=== PATIENT | female | born 1985 | race Caucasian/White ===

== ENCOUNTER → 2018-03-22 | Outpatient (CLI) | payer MEDICAID ==
[~2018-03-22] MED LIST: BCP; BENZ100C18 PO; CEFP500T4 PO; NAPR-243 PO; birth control pill
--- NOTE | 2018-03-22 20:41 | Diagnostic Imaging Report ---
PROCEDURE: US OB single fetus <14 wks. TECHNIQUE: Multiple real-time grayscale images were obtained over the gravid uterus in various projections. INDICATION: dating. FINDINGS: There is a henry intrauterine gestational sac which demonstrates normal morphology. pole is present with crown-rump length of 1.5 cm, indicating gestational age of 8 weeks. Minimal fluid is seen adjacent to the gestational sac which may be related to implantation bleed. Cardiac activity is present with a rate of 176 beats per minute. No maternal adnexal region abnormality is identified. IMPRESSION: Unremarkable early intrauterine gestation with estimated age of 8 weeks. Sonographic EDC is 11/01/2018. Dictated by: Dictated on workstation # [id number]
== END ==
LOC: RAD 15:39
PROVIDERS: ATTEND Family Medicine
DX: Z34.91 Encounter for supervision of normal pregnancy, unspecified, first trimester (principal); Z3A.08 8 weeks gestation of pregnancy
CPT/HCPCS: 76801

== ENCOUNTER → 2018-06-04 | Outpatient (CLI) | payer MEDICAID ==
--- NOTE | 2018-06-04 17:47 | Diagnostic Imaging Report ---
INDICATION: survey. TECHNIQUE: Multiple real-time grayscale images were obtained over the gravid uterus. COMPARISON: 03/12/2018 FINDINGS: A single live intrauterine fetus is seen measuring 19 weeks 0 days in size with normal interval growth compared to the previous study. The fetus is in breech presentation at this time. Amniotic fluid is qualitatively normal. Placenta is posterior and grade 1 with no evidence of previa. heart rate is 152 beats per minute. Cervical length was 4.2 cm. Maternal ovaries could not be visualized but there was no free fluid. survey showed normal-appearing kidneys and bladder and stomach. Normal-appearing intracranial ventricles were seen. Normal four-chamber heart view and three-vessel cord and cord insertion were seen. Normal views of the spine were noted. The gestational sac had a normal shape. Biometrical measurements are as follows: Biparietal 4.42 cm, age 19 weeks 3 days. Head circumference 16.61 cm, age 19 weeks 3 days. Abdominal circumference 12.71 cm, age 18 weeks 3 days. Femur length 2.80 cm, age 18 weeks 4 days. Sonographic estimate age: 19 weeks 0 days. Sonographic estimated date of delivery: 10/29/2018. Estimated Weight: 245 gm (+/- 36 gm). LMP percentile: 43%. heart rate: 152 beats per minute. number: 1 of 1. IMPRESSION: Single live intrauterine fetus measuring 19 weeks 0 days in size with normal growth compared to the prior study. survey showed no detectable abnormalities. Cervical length is normal at 4.2 cm. Dictated by: Dictated on workstation # [id number]
== END ==
LOC: RAD 15:53
PROVIDERS: ATTEND Family Medicine
DX: Z36.89 Encounter for other specified antenatal screening (principal); Z3A.19 19 weeks gestation of pregnancy
CPT/HCPCS: 76805

== ENCOUNTER → 2018-07-26 | Outpatient (CLI) | payer MEDICAID ==
--- NOTE | 2018-07-26 09:40 | NUR ---
to [facility] via ambulation for rhogam administration per dr lawler order.
== END ==
LOC: WSo 09:47
PROVIDERS: ATTEND Family Medicine
DX: Z31.82 Encounter for Rh incompatibility status (principal)
CPT/HCPCS: 96372

== ENCOUNTER → 2018-10-22 | Outpatient (CLI) | payer MEDICAID ==
[~2018-10-22] MED LIST changes: +PNV11TAB5 PO
== END ==
LOC: LAB 08:40
PROVIDERS: ATTEND Family Medicine
DX: R03.0 Elevated blood-pressure reading, without diagnosis of hypertension (principal)
CPT/HCPCS: 82570; 84156

== ENCOUNTER → 2018-10-23 | Outpatient (CLI) | payer MEDICAID ==
[~2018-10-23] MED LIST changes: +ACHD5005 PO; +Benzocaine/Menthol TP; +DIBU30OI TOP; +DOCU100C37 PO; +FERR325T18 PO; +IBUP-844 PO; +LABE200T7 PO
[2018-10-23 10:10] LABS: HEMOGLOBIN 10.3 G/DL (11.5-16.0); RED CELL DISTRIBUTION WIDTH 15.2 % (10.0-14.5); WHITE BLOOD COUNT 7.8 10^3/uL (4.3-11.0)
[2018-10-23 10:28] LABS: ALANINE AMINOTRANSFERASE 15 U/L (0-55); ALBUMIN 3.2 GM/DL (3.2-4.5); ALKALINE PHOSPHATASE 142 U/L (40-136); BILIRUBIN,TOTAL 0.7 MG/DL (0.1-1.0); BUN/CREATININE RATIO 11; CALCIUM 9.2 MG/DL (8.5-10.1); CHLORIDE 103 MMOL/L (98-107); CREATININE SERUM 0.64 MG/DL (0.60-1.30); GFR ESTIMATED > 60; GLUCOSE 81 MG/DL (70-105); SODIUM 132 MMOL/L (135-145); TOTAL PROTEIN 7.4 GM/DL (6.4-8.2); URIC ACID 4.6 MG/DL (2.6-7.2)
[2018-10-23 10:40] LABS: CARBON DIOXIDE 8 MMOL/L (21-32)
== END ==
LOC: LABNPT 10:00
PROVIDERS: ATTEND Obstetrics & Gynecology
DX: O13.9 Gestational [pregnancy-induced] hypertension without significant proteinuria, unspecified trimester (principal); Z3A.00 Weeks of gestation of pregnancy not specified
CPT/HCPCS: 80053; 82570; 84156; 84550; 85027

== ENCOUNTER 2018-10-25 06:00 | Inpatient (IN) | payer MEDICAID | END 2018-10-27 11:10 | disposition home or self-care (01) | LOC: LDRP 06:00 ==

== ENCOUNTER 2018-11-02 16:02 | Emergency (ER) | payer MEDICAID ==
[~2018-11-02] VITALS: Ht 177.8 cm; Wt 69.9 kg
--- NOTE | 2018-11-02 16:13 | ED GU-Female ---
General Stated Complaint: BLEEDING AFTER VAG DELIVERY Source: patient Exam Limitations: no limitations History of Present Illness Date Seen by Provider: Nov 02, 2018 Time Seen by Provider: 16:01 Initial Comments The patient presents to ER by private conveyance with her spouse and family and chief complaint she is 9 days from a with a history of mild preeclampsia with them most recent known to Dr. Rivero and Dr. KINNEY. She been having normal bleeding about the level of period until the last 2 days when she started passing some egg-sized clots and then today she passed a large clot and filled her pants and shoes in a puddle on the ground so she decided to come to the ER. She's not having any fevers chills cough shortness of breath chest pain or abdominal or pelvic pain. No other discharge. She has mild discomfort in her suprapubic region but no dysuria. No bleeding disorder. The patient is on labetalol for her hypertension and vitamins as well as iron. Allergies and Home Medications Allergies Coded Allergies: No Known Drug Allergies (Unverified , 10/25/18) Home Medications Dibucaine 30 Gm Oint, 0 GM TOP UD PRN for PAIN- SEE INSTRUCTIONS Prescribed by: CHANTELL KINNEY on 10/25/181820 Docusate Sodium 100 Mg Capsule, 100 MG PO BID PRN for CONSTIPATION-1ST LINE Prescribed by: CHANTELL KINNEY on 10/25/181820 Ferrous Sulfate 325 Mg Tablet, 325 MG PO DAILY Prescribed by: CHANTELL KINNEY on 10/25/181820 Hydrocodone Bit/Acetaminophen 1 Tab Tab, 1 TAB PO Q4H PRN for PAIN-MODERATE Prescribed by: CHANTELL KINNEY on 10/25/181820 Ibuprofen 600 Mg Tablet, 600 MG PO Q6HR Prescribed by: CHANTELL KINNEY on 10/25/181820 Labetalol HCl 200 Mg Tablet, 200 MG PO BID Prescribed by: CHANTELL KINNEY on 10/26/18 0809 Tuj431/FA/Omega3/Dha/Fish Oil 1 Each Tab.chew, 2 EACH PO DAILY, (Reported) [Benzocaine/Menthol] 56 ML AEROSOL, 56 ML TP UD PRN for PAIN- SEE INSTRUCTIONS EXTERNAL USE ONLY Prescribed by: CHANTELL KINNEY on 10/25/181820 [ control pill] , DAILY, (Reported) Patient Home Medication List Home Medication List Reviewed: Yes Review of Systems Review of Systems Constitutional: No chills, No diaphoresis EENTM: No ear discharge, No ear pain Respiratory: No short of breath Cardiovascular: No chest pain, No edema Gastrointestinal: No abdominal pain, No constipation, No diarrhea Past Wkzpnng-Wmqwyp-Fophnc Hx Patient Social History Alcohol Use: Denies Use Recreational Drug Use: No Smoking Status: Never a Smoker Recent Foreign Travel: No Contact w/Someone Who Travel: No Recent Hopitalizations: No Immunizations Up To Date PED Vaccines UTD: Yes Seasonal Allergies Seasonal Allergies: Yes Past Medical History Surgeries: Yes Respiratory: No Cardiac: No Neurological: No Reproductive Disorders: No Female Reproductive Disorders: Denies Sexually Transmitted Disease: No HIV/AIDS: No Genitourinary: No Gastrointestinal: No Musculoskeletal: No Endocrine: No HEENT: No Cancer: No Psychosocial: No Integumentary: No Blood Disorders: No Adverse Reaction/Blood Tranf: No Family Medical History Hypertension 19 MOTHER No Pertinent Family Hx Physical Exam Vital Signs Vital Signs - First Documented 11/02/18 16:02 Temp 98.6 Pulse 81 Resp 18 B/P (MAP) 143/97 (112) Pulse Ox 98 O2 Delivery Room Air Capillary Refill : Height, Weight, BMI Height: 5'10.00" Weight: 175lbs. 0.8oz. 79.792150hc; 25.1 BMI Method:Stated General Appearance: WD/WN, no apparent distress HEENT: PERRL/EOMI, pharynx normal Cardiovascular: normal peripheral pulses, regular rate, rhythm Respiratory: no respiratory distress, no accessory muscle use Gastrointestinal: normal bowel sounds, non tender, soft, other (fundus of the uterus is firm, palpable about 3-4 cm above the pubic symphysis.) Genital/Rectal: other (vagina with some bloody secretions and some blood clots approximately one to 2 cm diameter. Patulous appearance of the cervix and vagina with open cervical os modest amount of blood clots but no membranes/POC could be retrieved.) Progress/Results/Core Measures Suspected Sepsis SIRS Temperature: Pulse: Respiratory Rate: Laboratory Tests 11/02/18 16:42: White Blood Count 10.8 Blood Pressure / Mean: Laboratory Tests 11/02/18 16:42: Creatinine 0.67, INR Comment 1.0, Platelet Count 364, Total Bilirubin 0.8 Results/Orders Lab Results Laboratory Tests Test 11/02/18 16:42 Range/Units White Blood Count 10.8 4.3-11.0 10^3/uL Red Blood Count 3.57 L 4.35-5.85 10^6/uL Hemoglobin 9.4 L 11.5-16.0 G/DL Hematocrit 30 L 35-52 % Mean Corpuscular Volume 83 80-99 FL Mean Corpuscular Hemoglobin 26 25-34 PG Mean Corpuscular Hemoglobin Concent 32 32-36 G/DL Red Cell Distribution Width 16.0 H 10.0-14.5 % Platelet Count 364 130-400 10^3/uL Mean Platelet Volume 8.3 7.4-10.4 FL Neutrophils (%) (Auto) 76 H 42-75 % Lymphocytes (%) (Auto) 14 12-44 % Monocytes (%) (Auto) 8 0-12 % Eosinophils (%) (Auto) 2 0-10 % Basophils (%) (Auto) 0 0-10 % Neutrophils # (Auto) 8.2 H 1.8-7.8 X 10^3 Lymphocytes # (Auto) 1.5 1.0-4.0 X 10^3 Monocytes # (Auto) 0.8 0.0-1.0 X 10^3 Eosinophils # (Auto) 0.3 0.0-0.3 10^3/uL Basophils # (Auto) 0.0 0.0-0.1 10^3/uL Prothrombin Time 13.1 12.2-14.7 SEC INR Comment 1.0 0.8-1.4 Activated Partial Thromboplast Time 28 24-35 SEC Sodium Level 139 135-145 MMOL/L Potassium Level 4.0 3.6-5.0 MMOL/L Chloride Level 109 H 98-107 MMOL/L Carbon Dioxide Level 19 L 21-32 MMOL/L Anion Gap 11 5-14 MMOL/L Blood Urea Nitrogen 14 7-18 MG/DL Creatinine 0.67 0.60-1.30 MG/DL Estimat Glomerular Filtration Rate > 60 BUN/Creatinine Ratio 21 Glucose Level 101 70-105 MG/DL Calcium Level 9.2 8.5-10.1 MG/DL Corrected Calcium 9.4 8.5-10.1 MG/DL Total Bilirubin 0.8 0.1-1.0 MG/DL Aspartate Amino Transf (AST/SGOT) 23 5-34 U/L Alanine Aminotransferase (ALT/SGPT) 49 0-55 U/L Alkaline Phosphatase 137 H 40-136 U/L C-Reactive Protein High Sensitivity 2.09 H 0.00-0.50 MG/DL Total Protein 7.0 6.4-8.2 GM/DL Albumin 3.7 3.2-4.5 GM/DL My Orders Orders - JANAY ALEX Us Non Ob Transvaginal [id number] (11/02/18 16:09) Cbc With Automated Diff (11/02/18 16:09) Comprehensive Metabolic Panel (11/02/18 16:09) Hs C Reactive Protein (11/02/18 16:09) Protime With Inr (11/02/18 16:09) Partial Thromboplastin Time (11/02/18 16:09) Ua Culture If Indicated (11/02/18 16:09) Ed Iv/Invasive Line Start (11/02/18 16:09) Wet Prep (11/02/18 16:14) Carboprost Injection (Hemabate Injection (11/02/18 17:15) Medications Given in ED Current Medications Medications Dose Ordered Sig/Letty Route Start Time Stop Time Status Last Admin Dose Admin Carboprost Tromethamine 250 mcg ONCE ONCE IM 11/02/18 17:15 11/02/18 17:16 DC 11/02/18 17:36 250 MCG Vital Signs/I&O 11/02/18 16:02 Temp 98.6 Pulse 81 Resp 18 B/P (MAP) 143/97 (112) Pulse Ox 98 O2 Delivery Room Air Capillary Refill : Progress Note : Time: 17:43 Progress Note Hemabate IM. Patient's had some clot broken up by Dr. KINNEY. He says if she rebleeds she can come back and he'll take her to do a D&C. Diagnostic Imaging Diagonstic Imaging: Ultrasound Plain Films/CT/US/NM/MRI: pelvis Comments NAME: STUART RICHARD MED REC#: [id number] PT STATUS: REG ER : 1985 PHYSICIAN: JANAY ALEX MD ADMIT DATE: 11/02/18/ER Signed Date of Exam:11/02/18 US NON OB TRANSVAGINAL [id number] PROCEDURE: US Non-OB transvaginal. TECHNIQUE: Multiple real-time grayscale images were obtained of the pelvis in various projections, endovaginally. INDICATION: Heavy vaginal bleeding. Patient is eight days . COMPARISON: Multiple prior OB ultrasounds. FINDINGS: The uterus measures 17.1 x 11.0 x 10.2 cm. The endometrium is markedly heterogeneous and thickened, with the endometrial stripe measuring 4.5 cm in thickness. Some echogenic foci are noted in the endometrium. There is no abnormal vascularity appreciated on color Doppler analysis. Neither ovary is visualized. No pelvic collection is demonstrated. IMPRESSION: Post gravid uterus, with thickened and heterogeneous endometrium. There is no abnormal vascularity appreciated in the endometrium on the current exam, however, there are scattered foci of increased echogenicity, possibly representing blood products and retained products of conception is not entirely excluded. Report was called to Dr. Alex in the [facility] ER at 5:06 p.m., by marco (for GA). Dictated by: Dictated on workstation # [id number] Dict: 11/02/18 165 Trans: 11/02/181707 MARCO [id number] Interpreted by: CHANTELL ROSS DO Electronically signed by: CHANTELL ROSS DO 11/02/181707 Reviewed: Reviewed by Me Consults Consults : Consulting Physician: CHANTELL KINNEY DO Consults Notes 1630: Discussed the case and he said the ultrasound will likely show possible POC because of blood clots. He does not know what her blood counts are and her vital signs. After we have the ultrasound call back. He feels blood pressure is elevated despite labetalol. 1715: NIRMAL to the ER to visit with the patient. Departure Impression Primary Impression: Abnormal uterine bleeding (AUB) Additional Impression: hemorrhage Qualified Codes: O72.1 - Other immediate hemorrhage Disposition: 01 HOME, SELF-CARE Condition: Stable Departure-Patient Inst. Decision time for Depature: 17:38 Referrals: NATHAN BEEBE MD (PCP/Family) Primary Care Physician Patient Instructions: Hemorrhage Add. Discharge Instructions: If he started having heavy bleeding again passing the large clots more than a chicken egg size or are going through a large pad more than once an hour then you should return to the ER during after-hours. Otherwise plan to keep follow-up appointments. Tylenol 650 mg every 6 hours as needed for pain as well as heating pads. JANAY ALEX Nov 02, 2018 16:13
[2018-11-02 16:54] LABS: BASOPHILS % (AUTO) 0 % (0-10); EOSINOPHILS # (AUTO) 0.3 10^3/uL (0.0-0.3); EOSINOPHILS % (AUTO) 2 % (0-10); HEMATOCRIT 30 % (35-52); HEMOGLOBIN 9.4 G/DL (11.5-16.0); LYMPHOCYTES # (AUTO) 1.5 X 10^3 (1.0-4.0); LYMPHOCYTES % (AUTO) 14 % (12-44); MEAN CORPUSCULAR HEMOGLOBIN 26 PG (25-34); MEAN CORPUSCULAR HGB CONC 32 G/DL (32-36); MEAN CORPUSCULAR VOLUME 83 FL (80-99); MEAN PLATELET VOLUME 8.3 FL (7.4-10.4); MONOCYTES # (AUTO) 0.8 X 10^3 (0.0-1.0); MONOCYTES % (AUTO) 8 % (0-12); NEUTROPHILS # (AUTO) 8.2 X 10^3 (1.8-7.8); NEUTROPHILS % (AUTO) 76 % (42-75); PLATELET COUNT 364 10^3/uL (130-400); WHITE BLOOD COUNT 10.8 10^3/uL (4.3-11.0)
--- NOTE | 2018-11-02 17:08 | Diagnostic Imaging Report ---
PROCEDURE: US Non-OB transvaginal. TECHNIQUE: Multiple real-time grayscale images were obtained of the pelvis in various projections, endovaginally. INDICATION: Heavy vaginal bleeding. Patient is eight days . COMPARISON: Multiple prior OB ultrasounds. FINDINGS: The uterus measures 17.1 x 11.0 x 10.2 cm. The endometrium is markedly heterogeneous and thickened, with the endometrial stripe measuring 4.5 cm in thickness. Some echogenic foci are noted in the endometrium. There is no abnormal vascularity appreciated on color Doppler analysis. Neither ovary is visualized. No pelvic collection is demonstrated. IMPRESSION: Post gravid uterus, with thickened and heterogeneous endometrium. There is no abnormal vascularity appreciated in the endometrium on the current exam, however, there are scattered foci of increased echogenicity, possibly representing blood products and retained products of conception is not entirely excluded. Report was called to Dr. Alex in the [facility] ER at 5:06 p.m., by johana (for [place]). Dictated by: Dictated on workstation # [id number]
[2018-11-02 17:09] LABS: ALANINE AMINOTRANSFERASE 49 U/L (0-55); ALBUMIN 3.7 GM/DL (3.2-4.5); ALKALINE PHOSPHATASE 137 U/L (40-136); BILIRUBIN,TOTAL 0.8 MG/DL (0.1-1.0); BUN/CREATININE RATIO 21; CALCIUM 9.2 MG/DL (8.5-10.1); CARBON DIOXIDE 19 MMOL/L (21-32); CHLORIDE 109 MMOL/L (98-107); CREATININE SERUM 0.67 MG/DL (0.60-1.30); GFR ESTIMATED > 60; GLUCOSE 101 MG/DL (70-105); PROTHROMBIN TIME PATIENT 13.1 SEC (12.2-14.7); SODIUM 139 MMOL/L (135-145)
[2018-11-02] MEDS ORDERED: CARBOPROST (HEMABATE) 250 MCG/ML AMP IM ONE (17:15)
--- NOTE | 2018-11-02 17:23 | NUR ---
Dr. Leroy in room. RN present in room during procedure.
--- NOTE | 2018-11-02 17:38 | Consultation ---
History of Present Illness History of Present Illness Patient Consulted On(sirisha/time) 11/02/18 17:31 Date Seen by Provider: Nov 02, 2018 Time Seen by Provider: 17:15 History of Present Illness Patient presents today PP from NVD() for hemorrhage at home. Reports passing a baseball size blood clot at home and continued to bleed fairly heavily to soaking through her pants and came to ER for bleeding. Reports little to no pain since passing the clot. States that bleeding is somewhat better now. Denies lightheadedness, or dizziness. Allergies and Home Medications Allergies Coded Allergies: No Known Drug Allergies (Unverified , 10/25/18) Home Medications Dibucaine 30 Gm Oint, 0 GM TOP UD PRN for PAIN- SEE INSTRUCTIONS Prescribed by: CHANTELL KINNEY on 10/25/181820 Docusate Sodium 100 Mg Capsule, 100 MG PO BID PRN for CONSTIPATION-1ST LINE Prescribed by: CHANTELL KINNEY on 10/25/181820 Ferrous Sulfate 325 Mg Tablet, 325 MG PO DAILY Prescribed by: CHANTELL KINNEY on 10/25/181820 Hydrocodone Bit/Acetaminophen 1 Tab Tab, 1 TAB PO Q4H PRN for PAIN-MODERATE Prescribed by: CHANTELL KINNEY on 10/25/181820 Ibuprofen 600 Mg Tablet, 600 MG PO Q6HR Prescribed by: CHANTELL KINENY on 10/25/181820 Labetalol HCl 200 Mg Tablet, 200 MG PO BID Prescribed by: CHANTELL KINNEY on 10/26/18 0809 Ama657/FA/Omega3/Dha/Fish Oil 1 Each Tab.chew, 2 EACH PO DAILY, (Reported) [Benzocaine/Menthol] 56 ML AEROSOL, 56 ML TP UD PRN for PAIN- SEE INSTRUCTIONS EXTERNAL USE ONLY Prescribed by: CHANTELL IKNNEY on 10/25/181820 [ control pill] , DAILY, (Reported) Patient Home Medication List Home Medication List Reviewed: Yes Past Fmsvgdg-Pjbcuz-Yzuusc Hx Patient Social History Alcohol Use: Denies Use Recreational Drug Use: No Smoking Status: Never a Smoker 2nd Hand Smoke Exposure: No Recent Foreign Travel: No Contact w/Someone Who Travel: No Recent Infectious Disease Expo: No Recent Hopitalizations: No Physical Abuse: No Sexual Abuse: No Mistreated: No Fear: No Immunizations Up To Date Tetanus Booster (TDap): Unknown PED Vaccines UTD: Yes Seasonal Allergies Seasonal Allergies: Yes Past Medical History Surgeries: Yes Section, Gallbladder Respiratory: No Cardiac: No Neurological: No Hx : 4 Hx Para: 4 Hx Total # of Abortions (Sp): 0 Reproductive Disorders: No Female Reproductive Disorders: Denies Sexually Transmitted Disease: No HIV/AIDS: No Genitourinary: No Gastrointestinal: No Musculoskeletal: No Endocrine: No HEENT: No Cancer: No Psychosocial: No Integumentary: No Blood Disorders: No Adverse Reaction/Blood Tranf: No Family Medical History Hypertension 19 MOTHER No Pertinent Family Hx Review of Systems-General Constitutional: no symptoms reported EENTM: see HPI Cardiovascular: see HPI Gastrointestinal: see HPI Genitourinary: see HPI : No Musculoskeletal: no symptoms reported Skin: no symptoms reported Psychiatric/Neurological: No Symptoms Reported All Other Systems Reviewed Negative Unless Noted: Yes Physical Exam-General Problems Physical Exam Vital Signs Vital Signs - First Documented 11/02/18 16:02 Temp 98.6 Pulse 81 Resp 18 B/P (MAP) 143/97 (112) Pulse Ox 98 O2 Delivery Room Air Capillary Refill : Less Than 3 Seconds General Appearance: WD/WN, no apparent distress HEENT: PERRL/EOMI Neck: non-tender Respiratory: no respiratory distress Cardiovascular: regular rate, rhythm Comments Bimanual performed, cervix dilated to 2 cm, able to break up and reduce approx 150-200 mL of blood clots. Minimal bleeding noted afterword. Assessment/Plan Assessment/Plan Admission Diagnosis/Plan Diagnosis: Late PP hemorrhage Acute blood loss anemia- but stable P: ER physician to give 250 mg Hemobate IM Follow up in clinic RTC if bleeding worsens, discussed D and C, but will like to avoid OR if able to Admission Status: Other CHANTELL KINNEY DO Nov 02, 2018 17:38
--- NOTE | 2018-11-02 17:58 | NUR ---
Patient given pad, brief and gown to wear home due to patint's clothes covered in blood.
[2018-11-02 17:59] VITALS: BP 127/93
[2018-11-02] MEDS ORDERED: ONDA4TAB11 PO (18:20)
== END 2018-11-02 18:01 | disposition home or self-care (01) ==
LOC: EDUNIT# 16:02 → ER 16:03
DX: O72.1 Other immediate postpartum hemorrhage (principal); O10.93 Unspecified pre-existing hypertension complicating the puerperium; Z82.49 Family history of ischemic heart disease and other diseases of the circulatory system
CPT/HCPCS: 36415; 76830; 80053; 85025; 85610; 85730; 86141